=== PATIENT | male | born 1940 ===

== ENCOUNTER 2018-11-08 13:50 | Emergency (ER) | payer OTHER ==
[~2018-11-08] VITALS: Ht 152.4 cm; Wt 100.2 kg
[2018-11-08] MEDS ORDERED: DIOVAN320 MG (14:02)
[2018-11-08] MEDS ORDERED: TOPROL XL50 M1 (14:03)
[2018-11-08] MEDS ORDERED: LIPITOR20 MG (14:03)
[2018-11-08] MEDS ORDERED: HYDROCHLOROTH12.5 M1 (14:03)
== END 2018-11-08 19:25 | disposition home or self-care (01) ==
LOC: ER 13:50
DX: B34.9 Viral infection, unspecified (principal); J11.1 Influenza due to unidentified influenza virus with other respiratory manifestations

== ENCOUNTER 2021-03-04 08:00 | Outpatient (CLI) | payer OTHER ==
[~2021-03-04 08:00] MED LIST: DIOVAN320 MG; HYDROCHLOROTH12.5 M1; LIPITOR20 MG; TOPROL XL50 M1
== END 2021-03-04 08:30 | disposition home or self-care (01) ==
LOC: PPH VACUNA 08:00
DX: Z23 Encounter for immunization (principal)